=== PATIENT | female | born 1960 | race Hispanic/Latino ===

== ENCOUNTER 2019-12-01 23:20 | Inpatient (IN) | payer OTHER ==
[~2019-12-01] VITALS: Ht 160 cm; Wt 80.0 kg
[2019-12-02] MEDS ORDERED: CLINDAMYCIN 900 MG/D5% WATER 50 ML IV ONE (00:01)
[2019-12-02] MEDS ORDERED: SODIUM CHLORIDE 0.9% 1000ML 2,000 ML IV ONE (00:01)
[2019-12-02 00:07] LABS: BASOPHILS % (AUTO) 0.3 % (0.0-5.0); EOSINOPHILS % (AUTO) 0.3 % (0.0-8.0); HEMATOCRIT 33.8 % (36-48); LYMPHOCYTES % (AUTO) 10.5 % (21.0-51.0); MEAN CORPUSCULAR HEMOGLOBIN 28.7 pg (27.0-33.0); MEAN CORPUSCULAR HGB CONC 34.6 g/dL (32.0-36.0); MONOCYTES % (AUTO) 8.3 % (3.0-13.0); NEUTROPHILS % (AUTO) 79.7 % (40.0-77.0); PLATELET COUNT (AUTO) 296 K/uL (130-400); RED BLOOD CELL COUNT(AUTO) 4.07 MIL/uL (4.00-5.50); RED CELL DISTRIBUTION WIDTH 12.3 % (11.0-15.5); WHITE BLOOD COUNT (AUTO) 14.8 K/uL (4.8-10.8)
[2019-12-02 00:12] LABS: CARBON DIOXIDE 29 mmol/L (21-32); CHLORIDE 91 mmol/L (101-111); CREATININE 0.7 mg/dL (0.5-1.5); GLOMERULAR FILTR. RATE CALC 90 mL/min (>60); GLUCOSE,RANDOM 314 mg/dL (70-105); POTASSIUM 3.2 mmol/L (3.5-5.1); SODIUM SERUM 130 mmol/L (136-145); UREA NITROGEN, BLOOD 18 mg/dL (7-18)
[2019-12-02 00:15] LABS: INR 1.03 (0.85-1.15); PARTIAL THROMBOPLASTIN TIME 31.5 SEC (26.3-35.5); PROTHROMBIN TIME 10.8 SEC (9.6-11.6)
[2019-12-02 00:35] LABS: ALANINE AMINOTRANSFERASE 23 U/L (12-78); ASPARTATE AMINOTRANSFERASE 15 U/L (10-37); BILIRUBIN,TOTAL 0.8 mg/dL (0.2-1.0); CREATINE KINASE, TOTAL 61 U/L (21-232); MYOGLOBIN 39 ng/mL (10-92); TOTAL PROTEIN, SERUM 7.1 g/dL (6.0-8.3); TROPONIN I < 0.04 ng/mL (0.00-0.06)
[2019-12-02] MEDS ORDERED: HYDRALAZINE HCL 20 MG/ML VIAL IV PRN (02:00)
[2019-12-02] MEDS ORDERED: ZOSYN 3.375GM+NS 50ML 50 ML IV ONE (02:15)
[2019-12-02] MEDS ORDERED: TETANUS/DIPHTHERIA TOXOID [ADULT] 0.5 ML VIAL IM ONE (02:16)
[2019-12-02 02:20] LABS: BILIRUBIN,URINE Negative (NEGATIVE); COLOR,URINE Yellow (YELLOW); GLUCOSE, URINE (UA) >=1000 mg/dL (NEGATIVE); KETONES,URINE >=80 mg/dL (NEGATIVE); LEUKOCYTE ESTERASE ,URINE Small (NEGATIVE); NITRATE,URINE Negative (NEGATIVE); OCCULT BLOOD,URINE Negative (NEGATIVE); PROTEIN,URINE Trace mg/dL (NEGATIVE)
[2019-12-02 02:24] LABS: APPEARANCE,URINE CLOUDY (CLEAR)
[2019-12-02 02:29] LABS: BACTERIA,URINE Few /HPF (None Seen); RBC,URINE 0-1 /HPF (0-1)
[2019-12-02] MEDS ORDERED: POTASSIUM CHLORIDE 10MEQ/100ML 100 ML IV PRN (02:30)
[2019-12-02] MEDS ORDERED: POTASSIUM CHLORIDE 10% ELIXIR 20 MEQ/15 ML UDCUP PO PRN (02:30)
[2019-12-02] MEDS ORDERED: POTASSIUM CHLORIDE 20 MEQ ERTAB PO PRN (02:30)
[2019-12-02] MEDS ORDERED: LIDOCAINE HCL-MPF 1% 2ML VIAL IV PRN (02:30)
[2019-12-02] MEDS ORDERED: POTASSIUM CHLORIDE 10% ELIXIR 20 MEQ/15 ML UDCUP ONE (03:09)
[2019-12-02 03:20] VITALS: BP 143/69
[2019-12-02] MEDS: SODIUM CHLORIDE 0.9% 1000ML 1,000 ML IV SCH ×2 (03:40→17:00)
[2019-12-02] MEDS ORDERED: METF500S7 PO (03:51)
[2019-12-02] MEDS ORDERED: LISI10TA7 PO (03:51)
[2019-12-02] MEDS: LACTULOSE 20 GM/30 ML UDCUP PO PRN (05:14)
[2019-12-02] MEDS: ACETAMINOPHEN 325 MG TAB PO PRN (05:36)
[2019-12-02 05:45] LABS: BASOPHILS % (AUTO) 0.3 % (0.0-5.0); EOSINOPHILS % (AUTO) 0.2 % (0.0-8.0); HEMATOCRIT 31.1 % (36-48); LYMPHOCYTES % (AUTO) 6.5 % (21.0-51.0); MEAN CORPUSCULAR HEMOGLOBIN 28.6 pg (27.0-33.0); MEAN CORPUSCULAR HGB CONC 34.4 g/dL (32.0-36.0); MEAN CORPUSCULAR VOLUME 83.2 fL (79-99); MONOCYTES % (AUTO) 6.1 % (3.0-13.0); PLATELET COUNT (AUTO) 273 K/uL (130-400); RED BLOOD CELL COUNT(AUTO) 3.74 MIL/uL (4.00-5.50); RED CELL DISTRIBUTION WIDTH 12.5 % (11.0-15.5); WHITE BLOOD COUNT (AUTO) 12.8 K/uL (4.8-10.8)
[2019-12-02 05:52] LABS: CREATININE 0.5 mg/dL (0.5-1.5); POTASSIUM 3.4 mmol/L (3.5-5.1)
[2019-12-02] MEDS ORDERED: FLU VACC QS2019-20 36MOS UP/PF 60 MCG/0.5 ML ML IM ONE (06:30)
[2019-12-02] MEDS: INSULIN HUMULIN R 100 UNIT/ML 3ML SQ SCH ×4 (06:33→21:06)
[2019-12-02 07:19] VITALS: BP 140/65
[2019-12-02] MEDS ORDERED: GLUCAGON 1MG KIT 1 MG ML IM PRN (07:45)
[2019-12-02] MEDS ORDERED: RENAL DOSE IV PRN (07:45)
[2019-12-02] MEDS ORDERED: DEXTROSE 50%-WATER 50 ML DISP.SYRIN IV PRN (07:45)
[2019-12-02 07:51] LABS: HEMOGLOBIN A1C 10.7 % (4.0-6.0)
[2019-12-02] MEDS ORDERED: CLINDAMYCIN 600 MG/D5% WATER 50 ML IV SCH (08:00)
[2019-12-02] MEDS: INSULIN GLARGINE 100 UNITS/ML 10 ML VIAL SQ SCH ×2 (09:00→09:41)
[2019-12-02] MEDS ORDERED: VANCOMYCIN PROTOCOL PER PHARMACY IV SCH (09:15)
[2019-12-02] MEDS: FAMOTIDINE 20MG TAB 20 MG TAB PO SCH ×2 (09:31→21:05)
[2019-12-02] MEDS: ENOXAPARIN SODIUM 40 MG/0.4 ML SYRINGE SQ SCH (09:32)
[2019-12-02] MEDS ORDERED: COMPOUND IV REFRIGERATED 1 EACH IVSOLN MISC PRN (10:00)
[2019-12-02] MEDS: KETOROLAC TROMETHAMINE 15MG/ML IV PRN ×2 (10:27→21:34)
[2019-12-02] MEDS: VANCOMYCIN 1.25 GM in SODIUM CHLORIDE 0.9% 250 ML IV SCH ×2 (10:41→21:05)
[2019-12-02 10:55] VITALS: BP 118/58
[2019-12-02] MEDS: ZOSYN 3.375GM+NS 50ML 50 ML IV SCH ×2 (14:14→21:05)
--- NOTE | 2019-12-02 15:23 | NUR ---
INITIAL SW spoke with patient. Patient states she lives with daughter, Noy Nicole, [phone]. Another emergency contact is patient's son, Sp Nicole, [phone]. Patient has no home services. DME: [employer], glucometer (uses insulin). Patient is able to complete ADL's independently and drives. No PCP. [facility] goes to [facility] when needing to see MD. Pharmacy is [facility] located in [place], [place]. DCP is home. Patient has no insurance or benefits. She is not a [place] citizen but has been a legal resident since late . Patient was provided with community resources for post hospitalization follow up. Patient was also provided with Good RX card for prescriptions and educated on [employer] $4 medication program and [employer] $5 medication program. Addendum: 12/02/19 at 1529 by KORINA LEONARD SS Amended: Links added.
[2019-12-02 15:57] VITALS: BP 129/62
[2019-12-02 20:00] VITALS: BP 151/66
--- NOTE | 2019-12-02 22:15 | NUR ---
PATIENT AND FAMILY STILL UNDECIDED ON DR. COX' RECOMMENDATION FOR AMPUTATION OF LEFT SECOND TOE. PATIENT HAS DISCUSSED RECOMMENDED SURGERY WITH FAMILY MEMBERS, BUT WANTS TO CONTINUE TO THINK ABOUT IT. CALLED DR. COX TO INFORM, SURGERY WAS CANCELLED AND WILL WAIT IF PATIENT AGREES TO SURGERY. IMMIGRATION SPECIALIST WAS INFORMED OF CANCELLATION.
[2019-12-02 23:49] VITALS: BP 161/76
[2019-12-03 03:47] VITALS: BP 116/53
[2019-12-03] MEDS: ZOSYN 3.375GM+NS 50ML 50 ML IV SCH ×3 (05:01→22:31)
[2019-12-03] MEDS: INSULIN HUMULIN R 100 UNIT/ML 3ML SQ SCH ×4 (05:48→22:36)
[2019-12-03 05:55] LABS: BASOPHILS % (AUTO) 0.2 % (0.0-5.0); EOSINOPHILS % (AUTO) 0.7 % (0.0-8.0); HEMATOCRIT 27.9 % (36-48); LYMPHOCYTES % (AUTO) 10.2 % (21.0-51.0); MEAN CORPUSCULAR HEMOGLOBIN 28.3 pg (27.0-33.0); MEAN CORPUSCULAR HGB CONC 34.1 g/dL (32.0-36.0); MONOCYTES % (AUTO) 5.3 % (3.0-13.0); NEUTROPHILS % (AUTO) 82.3 % (40.0-77.0); PLATELET COUNT (AUTO) 310 K/uL (130-400); RED BLOOD CELL COUNT(AUTO) 3.36 MIL/uL (4.00-5.50); RED CELL DISTRIBUTION WIDTH 12.9 % (11.0-15.5); WHITE BLOOD COUNT (AUTO) 13.8 K/uL (4.8-10.8)
[2019-12-03 06:11] LABS: ALBUMIN 1.8 g/dL (3.5-5.0); BILIRUBIN,TOTAL 0.5 mg/dL (0.2-1.0); CREATININE 0.5 mg/dL (0.5-1.5); TOTAL PROTEIN, SERUM 5.9 g/dL (6.0-8.3)
[2019-12-03 07:00] VITALS: BP 136/71
--- NOTE | 2019-12-03 09:46 | NUR ---
DR. COX PAGED AT THIS TIME
[2019-12-03] MEDS: FAMOTIDINE 20MG TAB 20 MG TAB PO SCH ×2 (10:29→22:31)
[2019-12-03] MEDS: VANCOMYCIN 1.25 GM in SODIUM CHLORIDE 0.9% 250 ML IV SCH ×2 (10:29→22:31)
[2019-12-03] MEDS: ENOXAPARIN SODIUM 40 MG/0.4 ML SYRINGE SQ SCH (10:30)
[2019-12-03] MEDS: INSULIN GLARGINE 100 UNITS/ML 10 ML VIAL SQ SCH (10:35)
[2019-12-03] MEDS: ACETAMINOPHEN 325 MG TAB PO PRN (10:38)
[2019-12-03 11:00] VITALS: BP 130/73
[2019-12-03] MEDS ORDERED: IOHEXOL-350 50ML VIAL IV ONE (14:22)
[2019-12-03] MEDS ORDERED: IOHEXOL-350 75 ML VIAL IV ONE (14:22)
[2019-12-03 16:00] VITALS: BP 151/77
[2019-12-03] MEDS: SODIUM CHLORIDE 0.9% 1000ML 1,000 ML IV SCH (17:00)
[2019-12-03 20:00] VITALS: BP 150/86
[2019-12-03] MEDS ORDERED: POTASSIUM CHLORIDE 10% ELIXIR 20 MEQ/15 ML UDCUP PO PRN (23:15)
[2019-12-03] MEDS ORDERED: LIDOCAINE HCL-MPF 1% 2ML VIAL IV PRN ×2 (23:15)
[2019-12-03] MEDS ORDERED: POTASSIUM CHLORIDE 20MEQ/100ML 100 ML IV PRN ×2 (23:15)
[2019-12-04] VITALS (21 sets, daily range): BP systolic 16–147; BP diastolic 53–85
[2019-12-04] MEDS: MAGNESIUM 2GM PREMIX 50ML 50 ML IV PRN (00:45)
[2019-12-04] MEDS: ZOSYN 3.375GM+NS 50ML 50 ML IV SCH (05:19)
[2019-12-04 05:40] LABS: BASOPHILS % (AUTO) 0.2 % (0.0-5.0); EOSINOPHILS % (AUTO) 1.2 % (0.0-8.0); HEMATOCRIT 28.1 % (36-48); LYMPHOCYTES % (AUTO) 14.7 % (21.0-51.0); MEAN CORPUSCULAR HEMOGLOBIN 27.9 pg (27.0-33.0); MEAN CORPUSCULAR HGB CONC 33.8 g/dL (32.0-36.0); MEAN CORPUSCULAR VOLUME 82.6 fL (79-99); MONOCYTES % (AUTO) 5.4 % (3.0-13.0); NEUTROPHILS % (AUTO) 77.9 % (40.0-77.0); PLATELET COUNT (AUTO) 358 K/uL (130-400); RED CELL DISTRIBUTION WIDTH 13.1 % (11.0-15.5); WHITE BLOOD COUNT (AUTO) 11.5 K/uL (4.8-10.8)
[2019-12-04 05:55] LABS: ALBUMIN 1.9 g/dL (3.5-5.0); BILIRUBIN,TOTAL 0.5 mg/dL (0.2-1.0); CREATININE 0.5 mg/dL (0.5-1.5); MAGNESIUM 2.1 mg/dL (1.80-2.40); POTASSIUM 3.5 mmol/L (3.5-5.1); TOTAL PROTEIN, SERUM 6.3 g/dL (6.0-8.3)
--- NOTE | 2019-12-04 06:15 | NUR ---
PATIENT UPDATE Pt kept npo post mn, was taken to OR for amputation of the left 2nd toe. Pt's K+= 3.0, pt was given a total of 40meq of kcl elixir with apple juice before midnight and 20meq kcl ivpb afterwards. MG was 1.80, 2gms of MgSo4 infused over 2 hrs as per protocol. The big blister /abscess on the rt lateral malleolus started draining, dressing applied accordingly. Pt slept well overnight, no complaints of pain.
[2019-12-04] MEDS ORDERED: MIDAZOLAM HCL 1 MG/ML 2ML VIAL ONE (06:24)
[2019-12-04] MEDS ORDERED: LIDOCAINE HCL MPF 1% 5ML VIAL ONE (06:24)
[2019-12-04] MEDS: INSULIN HUMULIN R 100 UNIT/ML 3ML SQ SCH ×4 (06:25→21:00)
[2019-12-04] MEDS ORDERED: FENTANYL CITRATE PF 50 MCG/1 ML 2ML VIAL ONE (06:25)
[2019-12-04] MEDS: SODIUM CHLORIDE 0.9% 1000ML 1,000 ML IV SCH ×2 (06:25→22:00)
[2019-12-04] MEDS ORDERED: PROPOFOL 10 MG/ML 20ML VIAL IV ONE (06:25)
[2019-12-04] MEDS ORDERED: BUPIVACAINE/PF 0.5% 10ML VIAL ONE (06:29)
[2019-12-04] MEDS ORDERED: LIDOCAINE HCL 1% MDV 50ML VIAL ONE (06:29)
[2019-12-04] MEDS: FLU VACC QS2019-20 36MOS UP/PF 60 MCG/0.5 ML ML IM SCH (09:00)
[2019-12-04] MEDS: FAMOTIDINE 20MG TAB 20 MG TAB PO SCH ×2 (09:55→21:59)
[2019-12-04] MEDS: VANCOMYCIN 1.25 GM in SODIUM CHLORIDE 0.9% 250 ML IV SCH ×2 (09:55→21:54)
[2019-12-04] MEDS: INSULIN GLARGINE 100 UNITS/ML 10 ML VIAL SQ SCH (10:11)
[2019-12-04] MEDS: ENOXAPARIN SODIUM 40 MG/0.4 ML SYRINGE SQ SCH (10:11)
[2019-12-04] MEDS: POTASSIUM CHLORIDE 20 MEQ ERTAB PO PRN ×2 (15:00→17:58)
[2019-12-04] MEDS: KETOROLAC TROMETHAMINE 15MG/ML IV PRN (22:03)
[2019-12-05] VITALS: BP 129/64
[2019-12-05 04:00] VITALS: BP 147/80
[2019-12-05] MEDS: INSULIN HUMULIN R 100 UNIT/ML 3ML SQ SCH ×4 (05:52→21:59)
[2019-12-05] MEDS: KETOROLAC TROMETHAMINE 15MG/ML IV PRN ×2 (05:57→21:57)
[2019-12-05 06:01] LABS: BASOPHILS % (AUTO) 0.2 % (0.0-5.0); EOSINOPHILS % (AUTO) 2.3 % (0.0-8.0); HEMATOCRIT 27.7 % (36-48); LYMPHOCYTES % (AUTO) 16.3 % (21.0-51.0); MEAN CORPUSCULAR HEMOGLOBIN 28.7 pg (27.0-33.0); MEAN CORPUSCULAR HGB CONC 33.9 g/dL (32.0-36.0); MEAN CORPUSCULAR VOLUME 84.5 fL (79-99); MONOCYTES % (AUTO) 8.6 % (3.0-13.0); NEUTROPHILS % (AUTO) 72.1 % (40.0-77.0); PLATELET COUNT (AUTO) 355 K/uL (130-400); RED BLOOD CELL COUNT(AUTO) 3.28 MIL/uL (4.00-5.50); RED CELL DISTRIBUTION WIDTH 13.5 % (11.0-15.5); WHITE BLOOD COUNT (AUTO) 8.2 K/uL (4.8-10.8)
[2019-12-05 06:22] LABS: ALBUMIN 1.6 g/dL (3.5-5.0); BILIRUBIN,TOTAL 0.4 mg/dL (0.2-1.0); CREATININE 0.7 mg/dL (0.5-1.5)
[2019-12-05 08:00] VITALS: BP 148/70
[2019-12-05] MEDS: VANCOMYCIN 1.25 GM in SODIUM CHLORIDE 0.9% 250 ML IV SCH (10:06)
[2019-12-05] MEDS: FAMOTIDINE 20MG TAB 20 MG TAB PO SCH ×2 (10:06→21:57)
[2019-12-05] MEDS: ENOXAPARIN SODIUM 40 MG/0.4 ML SYRINGE SQ SCH (10:08)
[2019-12-05] MEDS: INSULIN GLARGINE 100 UNITS/ML 10 ML VIAL SQ SCH (10:17)
[2019-12-05 12:00] VITALS: BP 150/87
--- NOTE | 2019-12-05 12:00 | NUR ---
Dr. Bennett. aware of bilateral Lower Ext pitting edema okay to d/c fluids.
--- NOTE | 2019-12-05 13:00 | NUR ---
DAUGHTER STATE DO WOUND CARE AT NIGHT DUE TO FAMILY AT BEDSIDE. OR AFTER THEY LEAVE.
--- NOTE | 2019-12-05 13:00 | NUR ---
DR. COX PAGED NO ORDERS FOR WOUND CARE ORDERS RECEIVED AND ENTERED.
[2019-12-05] MEDS: CEFAZOLIN SODIUM 1 GM VIAL IVP SCH ×2 (13:47→21:58)
[2019-12-05] MEDS: SODIUM CHLORIDE 0.9% 1000ML 1,000 ML IV SCH (13:47)
[2019-12-05 16:00] VITALS: BP 153/68
[2019-12-05 19:22] VITALS: BP 136/62
[2019-12-06] VITALS (7 sets, daily range): BP systolic 126–159; BP diastolic 62–90
[2019-12-06] MEDS: CEFAZOLIN SODIUM 1 GM VIAL IVP SCH ×3 (05:40→21:45)
[2019-12-06] MEDS: INSULIN HUMULIN R 100 UNIT/ML 3ML SQ SCH ×4 (06:41→21:00)
--- NOTE | 2019-12-06 08:15 | NUR ---
Bilateral Foot dressing changes done/pictures taken see orders for wound care directions.
[2019-12-06] MEDS: FAMOTIDINE 20MG TAB 20 MG TAB PO SCH ×2 (09:02→21:45)
[2019-12-06] MEDS: ENOXAPARIN SODIUM 40 MG/0.4 ML SYRINGE SQ SCH (09:05)
[2019-12-06] MEDS: INSULIN GLARGINE 100 UNITS/ML 10 ML VIAL SQ SCH (10:33)
--- NOTE | 2019-12-06 12:30 | NUR ---
GERSON Betancourt aware of pt bp 95/55 recheck 100/52 states no orders for now contin. to monitor. Addendum: 12/06/19 at 6 by COLT NICOLAS RN RN wrong pt documentation.
--- NOTE | 2019-12-06 13:00 | NUR ---
As per dr. Smith his plan is that if DVT is acute then might need IVC filter and if it is Chronic then he might not do intervention. But at this time he is waiting for report of us of LLE. Addendum: 12/06/19 at 1955 by COLT NICOLAS RN RN wrong pt documentation
[2019-12-06] MEDS: ACETAMINOPHEN 325 MG TAB PO PRN (18:52)
[2019-12-06] MEDS: FLU VACC QS2019-20 36MOS UP/PF 60 MCG/0.5 ML ML IM SCH (21:58)
[2019-12-07 04:27] VITALS: BP 151/86
[2019-12-07] MEDS: CEFAZOLIN SODIUM 1 GM VIAL IVP SCH ×3 (05:04→21:06)
[2019-12-07] MEDS: INSULIN HUMULIN R 100 UNIT/ML 3ML SQ SCH ×4 (05:30→21:13)
[2019-12-07 08:00] VITALS: BP 163/72
[2019-12-07] MEDS: ENOXAPARIN SODIUM 40 MG/0.4 ML SYRINGE SQ SCH (09:00)
[2019-12-07] MEDS: FAMOTIDINE 20MG TAB 20 MG TAB PO SCH ×2 (09:00→21:07)
[2019-12-07] MEDS: INSULIN GLARGINE 100 UNITS/ML 10 ML VIAL SQ SCH (09:00)
[2019-12-07 11:33] VITALS: BP 147/81
[2019-12-07] MEDS: ONDANSETRON HCL 4 MG/2 ML VIAL IV PRN (13:25)
[2019-12-07] MEDS: LACTULOSE 20 GM/30 ML UDCUP PO PRN (13:25)
[2019-12-07 16:00] VITALS: BP 142/69
[2019-12-07 20:32] VITALS: BP 150/77
--- NOTE | 2019-12-07 23:58 | NUR ---
MD Dr WOLFE came to see pt.
[2019-12-08 01:04] VITALS: BP 149/77
[2019-12-08 03:54] VITALS: BP 147/78
[2019-12-08] MEDS: CEFAZOLIN SODIUM 1 GM VIAL IVP SCH ×4 (04:25→20:43)
[2019-12-08 05:25] LABS: MEAN CORPUSCULAR HEMOGLOBIN 28.5 pg (27.0-33.0); MEAN CORPUSCULAR HGB CONC 33.5 g/dL (32.0-36.0); MEAN CORPUSCULAR VOLUME 85.2 fL (79-99); PLATELET COUNT (AUTO) 409 K/uL (130-400); RED BLOOD CELL COUNT(AUTO) 3.05 MIL/uL (4.00-5.50); RED CELL DISTRIBUTION WIDTH 13.5 % (11.0-15.5); WHITE BLOOD COUNT (AUTO) 6.7 K/uL (4.8-10.8)
[2019-12-08 05:45] LABS: ALBUMIN 1.8 g/dL (3.5-5.0); BILIRUBIN,TOTAL 0.2 mg/dL (0.2-1.0); CREATININE 0.8 mg/dL (0.5-1.5); MAGNESIUM 2.3 mg/dL (1.80-2.40); POTASSIUM 3.4 mmol/L (3.5-5.1); TOTAL PROTEIN, SERUM 6.3 g/dL (6.0-8.3)
[2019-12-08] MEDS: INSULIN HUMULIN R 100 UNIT/ML 3ML SQ SCH ×4 (05:51→20:44)
[2019-12-08] MEDS: POTASSIUM CHLORIDE 20 MEQ ERTAB PO PRN (06:08)
[2019-12-08 06:48] LABS: BAND NEUTROPHILS % (MANUAL) 2 % (0-2); EOSINOPHILS % (MANUAL) 4 % (1-6); LYMPHOCYTES % (MANUAL) 16 % (22-44); MAN.DIFF COMMENT-IMPRESSION MANUAL DIFFERENTIAL; MONOCYTES % (MANUAL) 2 % (2-9); PLATELET MORPHOLOGY COMMENT ADEQUATE; SEGMENTED NEUTROPHILS % 76 % (40-70)
[2019-12-08 08:00] VITALS: BP 146/73
[2019-12-08] MEDS: FAMOTIDINE 20MG TAB 20 MG TAB PO SCH ×2 (09:54→20:43)
[2019-12-08] MEDS: ENOXAPARIN SODIUM 40 MG/0.4 ML SYRINGE SQ SCH (09:54)
[2019-12-08] MEDS: INSULIN GLARGINE 100 UNITS/ML 10 ML VIAL SQ SCH (09:55)
[2019-12-08 12:00] VITALS: BP 144/71
[2019-12-08 16:00] VITALS: BP 143/73
--- NOTE | 2019-12-08 19:09 | NUR ---
cm note informed nurses to teach wound care to pt/family , also, spoke to Dr Douglas states that pt will require current antibiotics ancef Q8hrs IV X 6 weeks.
--- NOTE | 2019-12-08 19:40 | NUR ---
WOUND CARE TEACHING DONE WITH THE DAUGHTER.
[2019-12-08 19:47] VITALS: BP 150/79
[2019-12-08] MEDS: LACTULOSE 20 GM/30 ML UDCUP PO PRN (20:49)
[2019-12-08] MEDS: ACETAMINOPHEN 325 MG TAB PO PRN (21:07)
[2019-12-09 00:50] VITALS: BP 132/65
--- NOTE | 2019-12-09 02:30 | NUR ---
REPORT Report given to Harvey Acuña
[2019-12-09 03:52] VITALS: BP 158/88
[2019-12-09 06:21] LABS: CREATININE 0.8 mg/dL (0.5-1.5); POTASSIUM 3.6 mmol/L (3.5-5.1)
[2019-12-09] MEDS: INSULIN HUMULIN R 100 UNIT/ML 3ML SQ SCH ×3 (06:49→20:43)
[2019-12-09 08:00] VITALS: BP 149/88
[2019-12-09] MEDS: FAMOTIDINE 20MG TAB 20 MG TAB PO SCH ×2 (10:37→20:52)
[2019-12-09] MEDS: ENOXAPARIN SODIUM 40 MG/0.4 ML SYRINGE SQ SCH (10:38)
[2019-12-09] MEDS: INSULIN GLARGINE 100 UNITS/ML 10 ML VIAL SQ SCH (10:41)
[2019-12-09 12:00] VITALS: BP 133/80
[2019-12-09] MEDS: CEFAZOLIN SODIUM 1 GM VIAL IVP SCH ×2 (12:35→20:52)
[2019-12-09 14:02] LABS: INR 1.09 (0.85-1.15); PARTIAL THROMBOPLASTIN TIME 31.5 SEC (26.3-35.5); PROTHROMBIN TIME 11.4 SEC (9.6-11.6)
--- NOTE | 2019-12-09 14:35 | NUR ---
call the daughter ranjana to obtain telephone consent. the call went to the voicemail. will try again.
[2019-12-09] MEDS: ACETAMINOPHEN 325 MG TAB PO PRN (14:42)
--- NOTE | 2019-12-09 14:58 | NUR ---
call dr. walker office to notify the consult. Addendum: 12/09/19 at 2103 by MAKAYLA ROBLES RN RN DISREGARD THE NOTE WRONG PATIENT
[2019-12-09 16:00] VITALS: BP 138/68
--- NOTE | 2019-12-09 17:36 | NUR ---
Nutrition Intervention: Nutrition screen based on LOS x 8 days. Pt. S/P left 2nd Toe Amputation/I&D minor right foot(12/04/2019). Pt. on 75gm CCD diet with good p.o. intake, as per pt. Labs reviewed(Alb 1.8, BG 139, HgbA1c 10.7%). SR-17, left 2nd toe amputation. LBM: 12/09/2019, per pt. Pt. educated on Diabetic diet and provided with education material. Pt. verbalized understanding. Recommendations: 1) Rec. 30ml ProMod TID with meals. 2) Diabetic diet education given to patient. 3) Continue to monitor pt's nutritional status. 4) Consult RD as nutrition concerns arise. Addendum: 12/09/19 at [address] Amended: Links added.
--- NOTE | 2019-12-09 19:23 | NUR ---
daughter presented herself to do the dressing change since I educated her yesterday and showed her the woundcare and dressing change. she was able to do the dressing change and wound care.
[2019-12-09 21:18] VITALS: BP 143/69
[2019-12-10] MEDS: ACETAMINOPHEN 325 MG TAB PO PRN ×3 (00:02→23:00)
[2019-12-10 00:42] VITALS: BP 141/73
[2019-12-10 04:11] VITALS: BP 136/69
[2019-12-10] MEDS: CEFAZOLIN SODIUM 1 GM VIAL IVP SCH ×3 (04:34→22:02)
[2019-12-10] MEDS: INSULIN HUMULIN R 100 UNIT/ML 3ML SQ SCH ×4 (05:42→21:00)
[2019-12-10 06:19] LABS: BASOPHILS % (AUTO) 0.4 % (0.0-5.0); EOSINOPHILS % (AUTO) 2.9 % (0.0-8.0); HEMATOCRIT 26.7 % (36-48); LYMPHOCYTES % (AUTO) 23.5 % (21.0-51.0); MEAN CORPUSCULAR HEMOGLOBIN 28.4 pg (27.0-33.0); MEAN CORPUSCULAR HGB CONC 32.6 g/dL (32.0-36.0); MEAN CORPUSCULAR VOLUME 87.3 fL (79-99); MONOCYTES % (AUTO) 8.9 % (3.0-13.0); NEUTROPHILS % (AUTO) 64.1 % (40.0-77.0); PLATELET COUNT (AUTO) 519 K/uL (130-400); RED BLOOD CELL COUNT(AUTO) 3.06 MIL/uL (4.00-5.50); RED CELL DISTRIBUTION WIDTH 13.6 % (11.0-15.5); WHITE BLOOD COUNT (AUTO) 5.5 K/uL (4.8-10.8)
[2019-12-10 08:00] VITALS: BP 151/84
[2019-12-10] MEDS: ENOXAPARIN SODIUM 40 MG/0.4 ML SYRINGE SQ SCH (09:52)
[2019-12-10] MEDS: FAMOTIDINE 20MG TAB 20 MG TAB PO SCH ×2 (09:52→22:02)
[2019-12-10] MEDS: INSULIN GLARGINE 100 UNITS/ML 10 ML VIAL SQ SCH (09:58)
[2019-12-10 12:00] VITALS: BP 149/63
[2019-12-10 16:00] VITALS: BP 153/71
[2019-12-10 20:00] VITALS: BP 147/65
[2019-12-10] MEDS ORDERED: ARIPIPRAZOLE 5 MG TABLET PO SCH (21:00)
[2019-12-10] MEDS ORDERED: ALPRAZOLAM 1 MG TAB PO SCH (21:00)
[2019-12-11] VITALS: BP 156/77
[2019-12-11] MEDS ORDERED: SODIUM CHLORIDE 0.9% 250 ML IV ONE (02:16)
[2019-12-11 04:00] VITALS: BP 154/75
[2019-12-11] MEDS: CEFAZOLIN SODIUM 1 GM VIAL IVP SCH ×3 (05:44→21:59)
[2019-12-11] MEDS: INSULIN HUMULIN R 100 UNIT/ML 3ML SQ SCH ×4 (05:45→22:01)
[2019-12-11 06:31] LABS: CREATININE 0.8 mg/dL (0.5-1.5); MAGNESIUM 1.9 mg/dL (1.80-2.40); POTASSIUM 3.5 mmol/L (3.5-5.1)
[2019-12-11] MEDS: POTASSIUM CHLORIDE 20 MEQ ERTAB PO PRN ×2 (06:45→22:00)
[2019-12-11] MEDS: MAGNESIUM 2GM PREMIX 50ML 50 ML IV PRN (06:45)
[2019-12-11 08:40] VITALS: BP 153/74
[2019-12-11 09:27] LABS: INR 1.09 (0.85-1.15); PROTHROMBIN TIME 11.4 SEC (9.6-11.6)
[2019-12-11] MEDS: FAMOTIDINE 20MG TAB 20 MG TAB PO SCH ×2 (10:27→21:59)
[2019-12-11] MEDS: ENOXAPARIN SODIUM 40 MG/0.4 ML SYRINGE SQ SCH (10:28)
[2019-12-11] MEDS: INSULIN GLARGINE 100 UNITS/ML 10 ML VIAL SQ SCH (10:32)
[2019-12-11] MEDS: ACETAMINOPHEN 325 MG TAB PO PRN ×2 (11:01→22:12)
[2019-12-11 12:21] VITALS: BP 136/57
[2019-12-11] MEDS: ONDANSETRON HCL 4 MG/2 ML VIAL IV PRN (12:42)
--- NOTE | 2019-12-11 16:10 | NUR ---
CM NOTE PER DR. ROMERO, CONTINUE CURRENT ORDER FOR ANCEF IV Q8HR X6 WEEKS.
[2019-12-11 16:56] VITALS: BP 151/70
--- NOTE | 2019-12-11 19:39 | NUR ---
PICC LINE 5 GEORGIAN 2 LUMEN PICC LINE INSERTED USING STERILE TECHNIQUE TO RIGHT UPPER ARM PT KATE WELL.NO ADVERSE REACTIONS NOTED. HAD A HARD TIME ADVANCING WIRE BUT WAS SUCCESSFUL. PICC LINE AT 40CM INSERTION SITE, 4 CM EXPOSED, 30 CM ARM CIRCUMFERENCE. STERILE DRESSING APPLIED TO SITE AFTER COMPLETION, BOTH PORTS FLUSHED WITHOUT COMPLICATIONS, AND GOOD BLOOD RETURN ON BOTH PORTS. PT DENIED ANY PAIN OR NUMBNESS TO RIGHT ARM. REPORT GIVEN TO Rojelio BUCK RN , PICC LINE OK TO USE PER VPS BULLSEYE CONFIRMATION TIP PLACED AT LOWER 1/3 OF SVC OR AT CAJ
[2019-12-11 20:00] VITALS: BP 135/76
[2019-12-12] VITALS: BP 140/70
[2019-12-12 04:00] VITALS: BP 143/75
[2019-12-12] MEDS: CEFAZOLIN SODIUM 1 GM VIAL IVP SCH ×3 (05:32→21:27)
[2019-12-12] MEDS: INSULIN HUMULIN R 100 UNIT/ML 3ML SQ SCH ×4 (06:28→21:31)
[2019-12-12 06:41] LABS: BASOPHILS % (AUTO) 0.4 % (0.0-5.0); EOSINOPHILS % (AUTO) 2.4 % (0.0-8.0); HEMATOCRIT 30.8 % (36-48); LYMPHOCYTES % (AUTO) 23.2 % (21.0-51.0); MEAN CORPUSCULAR HEMOGLOBIN 27.8 pg (27.0-33.0); MEAN CORPUSCULAR HGB CONC 31.5 g/dL (32.0-36.0); MEAN CORPUSCULAR VOLUME 88.3 fL (79-99); MONOCYTES % (AUTO) 6.6 % (3.0-13.0); PLATELET COUNT (AUTO) 568 K/uL (130-400); RED BLOOD CELL COUNT(AUTO) 3.49 MIL/uL (4.00-5.50); RED CELL DISTRIBUTION WIDTH 13.8 % (11.0-15.5)
[2019-12-12 06:56] LABS: CREATININE 0.7 mg/dL (0.5-1.5); POTASSIUM 4.3 mmol/L (3.5-5.1)
[2019-12-12 08:01] VITALS: BP 147/77
[2019-12-12] MEDS: FAMOTIDINE 20MG TAB 20 MG TAB PO SCH ×2 (08:34→21:27)
[2019-12-12] MEDS: ACETAMINOPHEN 325 MG TAB PO PRN ×2 (08:34→21:28)
[2019-12-12] MEDS: ENOXAPARIN SODIUM 40 MG/0.4 ML SYRINGE SQ SCH (08:35)
[2019-12-12] MEDS: INSULIN GLARGINE 100 UNITS/ML 10 ML VIAL SQ SCH (08:39)
[2019-12-12 12:00] VITALS: BP 141/71
[2019-12-12 16:00] VITALS: BP 140/71
[2019-12-12 20:55] VITALS: BP 160/81
[2019-12-13] VITALS: BP 118/49
[2019-12-13 04:21] VITALS: BP 127/68
[2019-12-13] MEDS: CEFAZOLIN SODIUM 1 GM VIAL IVP SCH ×3 (05:34→19:47)
[2019-12-13] MEDS: ACETAMINOPHEN 325 MG TAB PO PRN ×2 (05:45→17:22)
[2019-12-13] MEDS: INSULIN HUMULIN R 100 UNIT/ML 3ML SQ SCH ×4 (07:30→20:28)
[2019-12-13 08:00] VITALS: BP 124/65
[2019-12-13 08:32] LABS: CREATININE 0.8 mg/dL (0.5-1.5); CRP QUANTITATIVE 34.3 mg/L (0.00-9.0); POTASSIUM 3.7 mmol/L (3.5-5.1)
[2019-12-13] MEDS: FAMOTIDINE 20MG TAB 20 MG TAB PO SCH ×2 (08:43→19:47)
[2019-12-13] MEDS: ENOXAPARIN SODIUM 40 MG/0.4 ML SYRINGE SQ SCH (08:44)
[2019-12-13] MEDS: INSULIN GLARGINE 100 UNITS/ML 10 ML VIAL SQ SCH (08:48)
[2019-12-13 12:00] VITALS: BP 132/67
[2019-12-13 16:00] VITALS: BP 132/66
[2019-12-13 20:00] VITALS: BP 135/69
[2019-12-13] MEDS ORDERED: KETOROLAC TROMETHAMINE 15MG/ML IV SCH (20:45)
[2019-12-14] VITALS: BP 143/75
[2019-12-14] MEDS: CEFAZOLIN SODIUM 1 GM VIAL IVP SCH ×3 (03:53→20:52)
[2019-12-14 04:00] VITALS: BP 149/72
[2019-12-14] MEDS: INSULIN HUMULIN R 100 UNIT/ML 3ML SQ SCH ×4 (05:25→20:44)
[2019-12-14 08:00] VITALS: BP 151/81
[2019-12-14] MEDS: FAMOTIDINE 20MG TAB 20 MG TAB PO SCH ×2 (08:59→20:51)
[2019-12-14] MEDS: ENOXAPARIN SODIUM 40 MG/0.4 ML SYRINGE SQ SCH (09:00)
[2019-12-14] MEDS: INSULIN GLARGINE 100 UNITS/ML 10 ML VIAL SQ SCH (09:01)
[2019-12-14 11:27] VITALS: BP 137/78
[2019-12-14] MEDS: ACETAMINOPHEN-CODEINE 300/30MG TAB PO PRN (13:01)
[2019-12-14 16:00] VITALS: BP 127/65
--- NOTE | 2019-12-14 19:30 | NUR ---
ASSUMED CARE Report received from Harvey Acuña.Pt denies pain or discomfort.
[2019-12-14 19:35] VITALS: BP 137/69
[2019-12-15] VITALS (7 sets, daily range): BP systolic 122–164; BP diastolic 65–72
[2019-12-15] MEDS: CEFAZOLIN SODIUM 1 GM VIAL IVP SCH ×2 (03:23→21:53)
[2019-12-15] MEDS: ACETAMINOPHEN-CODEINE 300/30MG TAB PO PRN ×2 (03:34→21:53)
[2019-12-15] MEDS: INSULIN HUMULIN R 100 UNIT/ML 3ML SQ SCH ×4 (05:44→20:50)
[2019-12-15] MEDS: ENOXAPARIN SODIUM 40 MG/0.4 ML SYRINGE SQ SCH (10:25)
[2019-12-15] MEDS: FAMOTIDINE 20MG TAB 20 MG TAB PO SCH ×2 (10:25→20:50)
[2019-12-15] MEDS: INSULIN GLARGINE 100 UNITS/ML 10 ML VIAL SQ SCH (10:27)
[2019-12-15] MEDS: LACTULOSE 20 GM/30 ML UDCUP PO PRN ×2 (10:46→20:50)
[2019-12-15] MEDS: ACETAMINOPHEN 325 MG TAB PO PRN (12:36)
[2019-12-15] MEDS ORDERED: CEFAZOLIN SODIUM 1 GM VIAL IVP SCH (19:45)
--- NOTE | 2019-12-15 23:00 | NUR ---
WOUND CARE Left foot 2nd toe amputee cleansed with ns,packed with Iodoform,wound appears yellow slough,mild odor.Rt ankle ulcer cleansed with ns packed with Iodoform,wound appears pink,with yellow slugh,mild odor.Covered with 4x4 gauze and kerlix.Pt jaydon well with slight discomfort.
[2019-12-16 03:19] VITALS: BP 121/71
[2019-12-16] MEDS: CEFAZOLIN SODIUM 1 GM VIAL IVP SCH ×2 (04:06→20:11)
[2019-12-16] MEDS: INSULIN HUMULIN R 100 UNIT/ML 3ML SQ SCH ×4 (06:06→20:45)
[2019-12-16 07:47] VITALS: BP 154/76
[2019-12-16] MEDS: FAMOTIDINE 20MG TAB 20 MG TAB PO SCH ×2 (08:55→20:11)
[2019-12-16] MEDS: ENOXAPARIN SODIUM 40 MG/0.4 ML SYRINGE SQ SCH (08:56)
[2019-12-16] MEDS: INSULIN GLARGINE 100 UNITS/ML 10 ML VIAL SQ SCH (10:05)
[2019-12-16 11:23] VITALS: BP 137/74
[2019-12-16 15:34] VITALS: BP 149/71
--- NOTE | 2019-12-16 15:54 | NUR ---
RD FOLLOW UP DIET: 75GMCCD, 30ML PROMOD TID. PO INTAKE 100% AND HAS GOOD APPETITE. PT STATED SHE IS DRINKING 100% OF 30ML PROMOD TID FOR WOUND HEALING. S/P TOE AMPUTATION. S/P RIGHT ANKLE ABSCESS DEBRIDEMENT. PT UNABLE TO PASS BM AT THIS TIME, NOTED. MEDS REVIEWED. LABS REVIEWED. RD PROVIDED DIABETES DIET AND NUTRITION EDUCATION AT PREVIOUS VISIT ON 12/09/19. RD RECOMMENDS TO CONTINUE CURRENT DIET CONTINUE PROMOD TID FOR WOUND HEALING, ENCOURAGE 100% PO INTAKE DAILY RD PROVIDED NUTRITION EDUCATION Addendum: 12/16/19 at [address] Amended: Links added.
[2019-12-16 19:20] VITALS: BP 155/78
[2019-12-16] MEDS: LACTULOSE 20 GM/30 ML UDCUP PO PRN (20:11)
--- NOTE | 2019-12-16 21:00 | NUR ---
DRESSING CHANGED Left foot 2nd toe amputation cleansed with Ns,packed with Iodoform.Wound appears macerated,with yellowish slough,mild odor.Rt heel ulcer appears macerated as well.Wound appears pinkish with yellow edges,mild odor.Cleansed with NS,packed with Iodoform,covered with 4x4 gauze and secured with kerlix.Pt jaydon well.
[2019-12-16] MEDS: ACETAMINOPHEN 325 MG TAB PO PRN (21:39)
[2019-12-16 23:19] VITALS: BP 146/79
[2019-12-17 03:05] VITALS: BP 142/72
--- NOTE | 2019-12-17 04:44 | NUR ---
SLEEP Pt sleeping well.No distress noted.
[2019-12-17] MEDS: CEFAZOLIN SODIUM 1 GM VIAL IVP SCH ×2 (05:28→17:54)
[2019-12-17] MEDS: INSULIN HUMULIN R 100 UNIT/ML 3ML SQ SCH ×4 (05:31→21:25)
[2019-12-17 08:00] VITALS: BP 153/90
[2019-12-17] MEDS: FAMOTIDINE 20MG TAB 20 MG TAB PO SCH ×2 (08:51→21:20)
[2019-12-17] MEDS: ENOXAPARIN SODIUM 40 MG/0.4 ML SYRINGE SQ SCH (08:53)
[2019-12-17] MEDS: INSULIN GLARGINE 100 UNITS/ML 10 ML VIAL SQ SCH (08:57)
[2019-12-17 12:00] VITALS: BP 138/92
[2019-12-17 16:00] VITALS: BP 147/81
[2019-12-17] MEDS ORDERED: CADEXOMER IODINE 40 GM GEL TP SCH (16:15)
--- NOTE | 2019-12-17 17:30 | NUR ---
DRSG TO HER LT FOOT 2ND TOE, CHANGED ,CLEASNE WITH THE SALINE , AND PAD DRY AND APPLICATION OF THE IODOSORB GEL APPLICATION IN THE WOUND COVER WITH THE STERILE GAUZE ,AND SERCURE WITH KERLX . RT ANKLE SITE DRSG DONE, ALSO CLEANSE WITH THE SALINE PAD DRY AND APPLICATION OF IODOSORB GEL TO WOUND COVERED WITH THE GAUZE ,AND WRAP WITH THE KERLIX , PER KENNY JARVIS ORDERS , WOUNDS PICTURES DONE , TO RT FOOT 2ND TOE AND RT ANKLE AREA
[2019-12-17] MEDS: LACTULOSE 20 GM/30 ML UDCUP PO PRN (17:55)
[2019-12-17 19:45] VITALS: BP 134/78
[2019-12-17 23:00] VITALS: BP 148/80
[2019-12-18] MEDS: ACETAMINOPHEN-CODEINE 300/30MG TAB PO PRN ×3 (00:02→23:08)
[2019-12-18] MEDS: CEFAZOLIN SODIUM 1 GM VIAL IVP SCH ×4 (01:15→22:11)
[2019-12-18 03:00] VITALS: BP 160/86
[2019-12-18] MEDS: INSULIN HUMULIN R 100 UNIT/ML 3ML SQ SCH ×4 (06:25→21:00)
[2019-12-18] MEDS: FAMOTIDINE 20MG TAB 20 MG TAB PO SCH ×2 (07:28→20:23)
[2019-12-18] MEDS: ENOXAPARIN SODIUM 40 MG/0.4 ML SYRINGE SQ SCH (07:29)
[2019-12-18] MEDS: INSULIN GLARGINE 100 UNITS/ML 10 ML VIAL SQ SCH (07:40)
[2019-12-18 07:59] VITALS: BP 150/74
[2019-12-18 11:19] VITALS: BP 123/62
--- NOTE | 2019-12-18 12:05 | NUR ---
Nutrition Follow-up: Pt. on 75gm CCD diet, 30ml ProMod TID. Pt. reports ~50% p.o. intake at b'fast and good p.o. intake at lunch/dinner meals. Spoke with pt. regarding nut. supplementation with Glucerna at B'fast time and pt. agreed to try. Labs reviewed(Alb 1.8, BG 122). LBM: 12/16/2019, very small amt. per pt. Meds reviewed(Lactulose). SR-19, Left 2nd toe incision. Pt. previously educated on diabetic diet on 12/09/2019. Pt. voiced no questions regarding diet at this time. Recommendations: 1) Continue current diet and ProMod supplement. 2) Rec. Vanilla Glucerna QD with B'fast meal. 3) Continue to monitor pt's nutritional status. 4) Consult RD as nutrition concerns arise. Addendum: 12/18/19 at [address] Amended: Links added.
[2019-12-18] MEDS: LACTULOSE 20 GM/30 ML UDCUP PO PRN (15:40)
[2019-12-18 16:42] VITALS: BP 137/68
[2019-12-18 20:00] VITALS: BP 142/70
[2019-12-19] VITALS (7 sets, daily range): BP systolic 121–147; BP diastolic 61–75
[2019-12-19] MEDS: INSULIN HUMULIN R 100 UNIT/ML 3ML SQ SCH ×4 (05:36→20:39)
[2019-12-19] MEDS: CEFAZOLIN SODIUM 1 GM VIAL IVP SCH ×2 (06:01→14:29)
[2019-12-19] MEDS: FAMOTIDINE 20MG TAB 20 MG TAB PO SCH ×2 (09:57→19:36)
[2019-12-19] MEDS: INSULIN GLARGINE 100 UNITS/ML 10 ML VIAL SQ SCH (09:58)
[2019-12-19] MEDS: ENOXAPARIN SODIUM 40 MG/0.4 ML SYRINGE SQ SCH (09:58)
[2019-12-19] MEDS: ACETAMINOPHEN-CODEINE 300/30MG TAB PO PRN ×2 (11:30→19:36)
[2019-12-19] MEDS: LACTULOSE 20 GM/30 ML UDCUP PO PRN (11:31)
[2019-12-20] MEDS: CEFAZOLIN SODIUM 1 GM VIAL IVP SCH ×2 (03:25→09:15)
[2019-12-20] MEDS: LACTULOSE 20 GM/30 ML UDCUP PO PRN (03:32)
[2019-12-20 03:54] VITALS: BP 133/67
[2019-12-20] MEDS: INSULIN HUMULIN R 100 UNIT/ML 3ML SQ SCH (06:27)
[2019-12-20 07:55] VITALS: BP 144/72
[2019-12-20] MEDS: ENOXAPARIN SODIUM 40 MG/0.4 ML SYRINGE SQ SCH (09:14)
[2019-12-20] MEDS: FAMOTIDINE 20MG TAB 20 MG TAB PO SCH (09:14)
[2019-12-20] MEDS: INSULIN GLARGINE 100 UNITS/ML 10 ML VIAL SQ SCH (09:16)
[2019-12-20 11:32] VITALS: BP 100/67
[2019-12-20 11:41] VITALS: BP 142/79
--- NOTE | 2019-12-20 14:00 | NUR ---
[facility] WILL NEED ADMIN APPROVAL TO SET UP WILL SEND EMAIL TO CM DIRECTOR, CNO. ADVISED RN AND MD TO ENSURE THAT PATIENT/FAMILY TAUGHT WOUND CARE AND GIVEN SUPPLIES
--- NOTE | 2019-12-20 19:38 | NUR ---
PT IS BEEN DC HOME WITH ANTIBIOTIC TREATMENT FOR 6 WEEKS. PT AND FAMILY IS BEEN EDUCATED AND TEACH ON HOW TO TAKE CARE OF WOUND AND DRESSING CHANGE. PT VERBALIZED UNDERSTAND. F/U WITH DR COX AND [facility] ONCE AWEEK FOR WOUND CHECK, CONT. MEDIHONEY ON THE WOUND.
== END 2019-12-20 14:20 | disposition home or self-care (01) | DRG 854 ==
LOC: EDH 23:20 → EDHIP 23:21 → 3AH 12-02 02:49 → 3BH 12-13 19:06
PROVIDERS: ADMIT Internal Medicine; ATTEND Internal Medicine
PROC: 0Y6S0Z0 Detachment at Left 2nd Toe, Complete, Open Approach (ICD-10-PCS; principal; 2019-12-01)
PROC: 0L9S0ZZ Drainage of Right Ankle Tendon, Open Approach (ICD-10-PCS; 2019-12-01)
PROC: 3E0234Z Introduction of Serum, Toxoid and Vaccine into Muscle, Percutaneous Approach (ICD-10-PCS; 2019-12-01)
PROC: 3E02340 Introduction of Influenza Vaccine into Muscle, Percutaneous Approach (ICD-10-PCS; 2019-12-01)
DX: A40.0 Sepsis due to streptococcus, group A (principal); M00.9 Pyogenic arthritis, unspecified; E11.52 Type 2 diabetes mellitus with diabetic peripheral angiopathy with gangrene; L03.116 Cellulitis of left lower limb; E87.1 Hypo-osmolality and hyponatremia; N39.0 Urinary tract infection, site not specified; M86.8X7 Other osteomyelitis, ankle and foot; L02.415 Cutaneous abscess of right lower limb; L02.416 Cutaneous abscess of left lower limb; L02.612 Cutaneous abscess of left foot; L03.115 Cellulitis of right lower limb; L97.319 Non-pressure chronic ulcer of right ankle with unspecified severity; E44.0 Moderate protein-calorie malnutrition; L03.032 Cellulitis of left toe; E11.69 Type 2 diabetes mellitus with other specified complication; E11.42 Type 2 diabetes mellitus with diabetic polyneuropathy; Z68.31 Body mass index [BMI] 31.0-31.9, adult; E11.621 Type 2 diabetes mellitus with foot ulcer; E66.9 Obesity, unspecified; E87.6 Hypokalemia; I10 Essential (primary) hypertension; K52.9 Noninfective gastroenteritis and colitis, unspecified; L97.509 Non-pressure chronic ulcer of other part of unspecified foot with unspecified severity; Z23 Encounter for immunization
CPT/HCPCS: 36415; 71045; 73700; 73721; 75635; 80048; 80053; 80202; 81001; 82550; 82948; 83036; 83605; 83735; 83874; 84132; 84145; 84484; 85025; 85610; 85730; 86140; 87040; 87070; 87076; 87077; 87088; 87186; 87205; 88305; 90714; 93005; 93306; 93356; 93925; 93970; 97039; 99291; A6266; C1894; G0008; G0378; J0690; J1650; J1815; J1885; J2250; J2405; J2543; J2704; J3010; J3370; J3475; J3480; J3490; J7030; L3260; Q2035; Q9967

== ENCOUNTER 2019-12-22 18:06 | Emergency (ER) | payer OTHER ==
[~2019-12-22 18:06] MED LIST: LISI10TA7 PO; METF500S7 PO
== END 2019-12-22 20:02 | disposition home or self-care (01) ==
LOC: EDH 18:06
DX: L02.415 Cutaneous abscess of right lower limb (principal); Z89.422 Acquired absence of other left toe(s); E11.65 Type 2 diabetes mellitus with hyperglycemia
CPT/HCPCS: 82948

== ENCOUNTER → 2019-12-24 | Outpatient (CLI) | payer OTHER ==
[2019-12-24 16:48] VITALS: BP 128/67
== END | disposition home or self-care (01) ==
LOC: WHH 10:40
PROVIDERS: ATTEND Podiatrist Foot & Ankle Surgery
DX: T87.89 Other complications of amputation stump (principal); E11.621 Type 2 diabetes mellitus with foot ulcer; L97.522 Non-pressure chronic ulcer of other part of left foot with fat layer exposed; E11.622 Type 2 diabetes mellitus with other skin ulcer; L97.312 Non-pressure chronic ulcer of right ankle with fat layer exposed; E11.69 Type 2 diabetes mellitus with other specified complication; M86.8X7 Other osteomyelitis, ankle and foot; E11.52 Type 2 diabetes mellitus with diabetic peripheral angiopathy with gangrene; I96 Gangrene, not elsewhere classified; E11.42 Type 2 diabetes mellitus with diabetic polyneuropathy; I10 Essential (primary) hypertension; E66.9 Obesity, unspecified; Z79.2 Long term (current) use of antibiotics; Y83.5 Amputation of limb(s) as the cause of abnormal reaction of the patient, or of later complication, without mention of misadventure at the time of the procedure
CPT/HCPCS: 11042

== ENCOUNTER → 2020-01-07 | Outpatient (CLI) | payer OTHER ==
[2020-01-07 11:20] VITALS: BP 151/81
== END | disposition home or self-care (01) ==
LOC: WHH 10:30
PROVIDERS: ATTEND Podiatrist Foot & Ankle Surgery
DX: T87.89 Other complications of amputation stump (principal); E11.621 Type 2 diabetes mellitus with foot ulcer; L89.893 Pressure ulcer of other site, stage 3; L97.521 Non-pressure chronic ulcer of other part of left foot limited to breakdown of skin; E11.622 Type 2 diabetes mellitus with other skin ulcer; L97.312 Non-pressure chronic ulcer of right ankle with fat layer exposed; E11.52 Type 2 diabetes mellitus with diabetic peripheral angiopathy with gangrene; I96 Gangrene, not elsewhere classified; E11.69 Type 2 diabetes mellitus with other specified complication; M86.8X7 Other osteomyelitis, ankle and foot; E11.42 Type 2 diabetes mellitus with diabetic polyneuropathy; I10 Essential (primary) hypertension; E66.9 Obesity, unspecified; Z79.2 Long term (current) use of antibiotics; Z89.422 Acquired absence of other left toe(s); Y83.5 Amputation of limb(s) as the cause of abnormal reaction of the patient, or of later complication, without mention of misadventure at the time of the procedure
CPT/HCPCS: 11042

== ENCOUNTER → 2020-02-04 | Outpatient (CLI) | payer OTHER ==
[2020-02-04 13:11] VITALS: BP 153/84
== END | disposition home or self-care (01) ==
LOC: WHH 10:45
PROVIDERS: ATTEND Podiatrist Foot & Ankle Surgery
DX: T87.89 Other complications of amputation stump (principal); E11.621 Type 2 diabetes mellitus with foot ulcer; L89.893 Pressure ulcer of other site, stage 3; L97.522 Non-pressure chronic ulcer of other part of left foot with fat layer exposed; E11.622 Type 2 diabetes mellitus with other skin ulcer; L97.312 Non-pressure chronic ulcer of right ankle with fat layer exposed; E11.52 Type 2 diabetes mellitus with diabetic peripheral angiopathy with gangrene; I96 Gangrene, not elsewhere classified; E11.69 Type 2 diabetes mellitus with other specified complication; M86.8X7 Other osteomyelitis, ankle and foot; E11.42 Type 2 diabetes mellitus with diabetic polyneuropathy; I10 Essential (primary) hypertension; E66.9 Obesity, unspecified; Z79.2 Long term (current) use of antibiotics; Z89.422 Acquired absence of other left toe(s); Y83.5 Amputation of limb(s) as the cause of abnormal reaction of the patient, or of later complication, without mention of misadventure at the time of the procedure
CPT/HCPCS: 11042; A6021

== ENCOUNTER → 2020-02-25 | Outpatient (CLI) | payer OTHER ==
[2020-02-25 11:19] VITALS: BP 144/66
== END | disposition home or self-care (01) ==
LOC: WHH 10:30
PROVIDERS: ATTEND Podiatrist Foot & Ankle Surgery
DX: T87.89 Other complications of amputation stump (principal); E11.621 Type 2 diabetes mellitus with foot ulcer; L89.893 Pressure ulcer of other site, stage 3; L97.522 Non-pressure chronic ulcer of other part of left foot with fat layer exposed; E11.622 Type 2 diabetes mellitus with other skin ulcer; L97.312 Non-pressure chronic ulcer of right ankle with fat layer exposed; E11.52 Type 2 diabetes mellitus with diabetic peripheral angiopathy with gangrene; I96 Gangrene, not elsewhere classified; E11.69 Type 2 diabetes mellitus with other specified complication; M86.8X7 Other osteomyelitis, ankle and foot; E11.42 Type 2 diabetes mellitus with diabetic polyneuropathy; I10 Essential (primary) hypertension; E66.9 Obesity, unspecified; Z79.2 Long term (current) use of antibiotics; Z89.422 Acquired absence of other left toe(s); Y83.5 Amputation of limb(s) as the cause of abnormal reaction of the patient, or of later complication, without mention of misadventure at the time of the procedure
CPT/HCPCS: 99214; A4649

== ENCOUNTER 2020-03-10 10:30 | Outpatient (CLI) | payer OTHER ==
[2020-03-10 12:45] VITALS: BP 161/82
== END 2020-03-10 13:40 | disposition home or self-care (01) ==
LOC: WHH 10:30
PROVIDERS: ATTEND Podiatrist Foot & Ankle Surgery
DX: T87.89 Other complications of amputation stump (principal); E11.621 Type 2 diabetes mellitus with foot ulcer; L89.893 Pressure ulcer of other site, stage 3; L97.522 Non-pressure chronic ulcer of other part of left foot with fat layer exposed; E11.622 Type 2 diabetes mellitus with other skin ulcer; L97.312 Non-pressure chronic ulcer of right ankle with fat layer exposed; E11.52 Type 2 diabetes mellitus with diabetic peripheral angiopathy with gangrene; I96 Gangrene, not elsewhere classified; E11.69 Type 2 diabetes mellitus with other specified complication; M86.8X7 Other osteomyelitis, ankle and foot; E11.42 Type 2 diabetes mellitus with diabetic polyneuropathy; I10 Essential (primary) hypertension; E66.9 Obesity, unspecified; Z79.2 Long term (current) use of antibiotics; Z89.422 Acquired absence of other left toe(s); Y83.5 Amputation of limb(s) as the cause of abnormal reaction of the patient, or of later complication, without mention of misadventure at the time of the procedure
CPT/HCPCS: 99211; 99214; G0463